=== PATIENT | female | born 1955 ===

== ENCOUNTER 2017-01-22 08:03 | Day surgery (SDC) | payer MEDICARE ==
[2015-08-31 09:18] VITALS: BMI 29.7
[2017-01-22 09:09] VITALS: O2SAT 100
[2017-01-22] MEDS ORDERED: Lactated Ringer's 500 ML IV ONE (09:42)
[2017-01-22 10:15] VITALS: TEMP 97
[2017-01-22 10:30] VITALS: BP 137/39; PULSE 55; RESP 18
== END 2017-01-22 13:59 | disposition home or self-care (01) ==
LOC: H.ENDO 08:03
PROVIDERS: ATTEND Internal Medicine Gastroenterology
DX: Z12.11 Encounter for screening for malignant neoplasm of colon (principal); E78.5 Hyperlipidemia, unspecified; I10 Essential (primary) hypertension; E03.9 Hypothyroidism, unspecified; K44.9 Diaphragmatic hernia without obstruction or gangrene; D12.3 Benign neoplasm of transverse colon; K64.8 Other hemorrhoids; K30 Functional dyspepsia; K29.70 Gastritis, unspecified, without bleeding; K29.50 Unspecified chronic gastritis without bleeding; B96.81 Helicobacter pylori [H. pylori] as the cause of diseases classified elsewhere
CPT/HCPCS: 43239; 45380; 88305; 88342; J7120

== ENCOUNTER 2017-02-24 13:20 | Emergency (ER) | payer MEDICARE ==
[2017-02-24 13:21] VITALS: BMI 29.7
[2017-02-24 13:38] VITALS: BP 142/72; PULSE 64; RESP 20; TEMP 98; O2SAT 100
--- NOTE | 2017-02-24 14:12 | ED PDOC ---
Upper Extremity Pain/Injury Time Seen by Provider: 02/24/17 13:34 Chief Complaint (Nursing): Upper Extremity Problem/Injury Chief Complaint (Provider): Left arm pain History Per: Patient History/Exam Limitations: no limitations Onset/Duration Of Symptoms: Days (3) Current Symptoms Are (Timing): Still Present Quality: "Pain" Severity: Moderate Exacerbating Factor(s): Movement Additional History Per: Patient Additional Complaint(s): The pt is a 61yo female with no pertinent PMHx, presents to the ED for evaluation of left sided neck pain radiating throughout her left arm. Pt. reports the pain is constant and worse with movement. She reports taking Aleve for pain with no relief - states last dose was taken last night. Pt denies any fall, trauma, chest pain, shortness of breath, palpitations. She offers no additional medical complaints. Past Medical History Reviewed: Historical Data, Nursing Documentation, Vital Signs Vital Signs: Last Vital Signs Temp 98.0 F 02/24/17 13:36 Pulse 64 02/24/17 13:36 Resp 20 02/24/17 13:36 BP 142/72 02/24/17 13:36 Pulse Ox 100 02/24/17 13:36 - Medical History PMH: Arthritis, Depression, Gastritis, HTN, Hypothyroidism Denies: Chronic Kidney Disease - Family History Family History: States: Unknown Family Hx - Home Medications Home Medications: Ambulatory Orders Medication Instructions Recorded Gabapentin [Neurontin] 300 mg PO QPM 09/02/15 Levothyroxine [Levoxyl] 150 mcg PO DAILY 09/02/15 Losartan Potassium 50 mg PO DAILY 09/02/15 Omeprazole [Prilosec] 20 mg PO DAILY 09/02/15 Rosuvastatin Calcium [Crestor] 10 mg PO DAILY 09/02/15 Cyclobenzaprine [Cyclobenzaprine 10 mg PO TID #20 tab 02/24/17 HCl] Ibuprofen [Motrin] 600 mg PO Q6 #20 tab 02/24/17 - Allergies Allergies/Adverse Reactions: Allergies Allergy/AdvReac Type Severity Reaction Status Date / Time No Known Allergies Allergy Verified 02/24/17 13:35 Review of Systems ROS Statement: Except As Marked, All Systems Reviewed And Found Negative Musculoskeletal: Positive for: Neck Pain (left sided), Arm Pain (left ) Physical Exam - Reviewed Nursing Documentation Reviewed: Yes Vital Signs Reviewed: Yes - Physical Exam Appears: Positive for: Well, Non-toxic, No Acute Distress Head Exam: Positive for: ATRAUMATIC, NORMAL INSPECTION, NORMOCEPHALIC Eye Exam: Positive for: Normal appearance Neck: Positive for: Normal (left cervical paraspinal tenderness), Supple Cardiovascular/Chest: Positive for: Regular Rate, Rhythm Respiratory: Positive for: Normal Breath Sounds. 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 See nursing notes. CBC, COMP resulted WNL Troponin (-) CXR: NAD, as read by GUILLERMO Cervical spine: NAD, as read by GUILLERMO Pt educated on all results and demonstrated full understanding. reports feeling improved on re-eval. Stable for discharge at this time Scribe Attestation: All records were documented by Janine Jackson, acting as a Scribe for ROBERT Lim. Provider Scribe Attestation: All medical record entries made by the Scribe were at my direction and personally dictated by me. I have reviewed the chart and agree that the record accurately reflects my personal performance of the history, physical exam, medical decision making, and the department course for this patient. I have also personally directed, reviewed, and agree with the discharge instructions and disposition. Disposition - Clinical Impression Clinical Impression: Shoulder pain - Patient ED Disposition Is Patient to be Admitted: No - Disposition Disposition: Routine/Home Disposition Time: 17:18 Condition: STABLE Prescriptions: Cyclobenzaprine [Cyclobenzaprine HCl] 10 mg PO TID #20 tab Ibuprofen [Motrin] 600 mg PO Q6 #20 tab Instructions: Shoulder Pain (ED) Print Language: MONGOLIAN
[2017-02-24 14:52] LABS: BASO % 0.6 % (0.0-2.0); EOS # 0.1 K/uL (0.0-0.7); HEMATOCRIT 38.8 % (34.0-47.0); LYMPH # 1.8 K/uL (1.0-4.3); LYMPH % 38.8 % (20.0-40.0); MEAN CELL VOLUME 76.3 fl (81.0-99.0); MEAN CORPUSCULAR HGB CONC 32.8 g/dL (33.0-37.0); MEAN PLATELET VOLUME 8.1 fl (7.2-11.7); MONO # 0.4 K/uL (0.0-0.8); MONO % 8.6 % (0.0-10.0); NEUT # 2.3 K/uL (1.8-7.0); NRBC % 0.2 % (0.0-0.0); RED CELL DISTRIBUTION WIDTH 15.2 % (11.5-14.5); WHITE BLOOD COUNT 4.6 K/uL (4.8-10.8)
--- NOTE | 2017-02-24 14:58 | RAD ---
PROCEDURE: Cervical Spine Radiographs. HISTORY: Cervical spine pain COMPARISON: 10/29/2016 FINDINGS: BONES: There is no interval change in overall alignment and appearance of the cervical vertebral bodies from the prior study. This would include moderate degenerative changes and anterior syndesmotic fights. Posterior elements are also unremarkable. No new jumped facets are seen. Neural foramen are unchanged. Hypertrophic degenerative facet change and uncovertebral changes are noted. Lung apices are within normal limits. C1-C2 articulation is unremarkable. No prevertebral soft tissue swelling is seen. Posterior elements are intact. DISC SPACES: No interval change. SOFT TISSUES: Normal. No prevertebral soft tissue swelling. OTHER FINDINGS: None. IMPRESSION: Stable cervical spondylosis without evidence of new malalignment or fracture.
--- NOTE | 2017-02-24 14:59 | RAD ---
HISTORY: left shoulder pain COMPARISON: 08/26/2015 TECHNIQUE: Chest PA and lateral FINDINGS: LUNGS: No active pulmonary disease. PLEURA: No significant pleural effusion identified. No pneumothorax apparent. CARDIOVASCULAR: Normal. OSSEOUS STRUCTURES: Stable degenerative changes are noted in the spine. VISUALIZED UPPER ABDOMEN: Normal. OTHER FINDINGS: None. IMPRESSION: No active disease. No interval change.
[2017-02-24 15:01] LABS: ALB/GLOB RATIO 1.2 (1.0-2.1); ALKALINE PHOSPHATASE 73 U/L (38-126); ALT/SGPT 32 U/L (9-52); AST/SGOT 23 U/L (14-36); BILIRUBIN,TOTAL 0.2 mg/dl (0.2-1.3); BLOOD UREA NITROGEN 13 mg/dl (7-17); CALCIUM 9.9 mg/dL (8.4-10.2); CARBON DIOXIDE 28 mmol/L (22-30); CHLORIDE 103 mmol/L (98-107); GFR AFRICAN-AMERICAN > 60; GLUCOSE,RANDOM 96 mg/dL (65-105); POTASSIUM 3.7 MMOL/L (3.6-5.0); SODIUM 143 mmol/l (132-148); TOTAL PROTEIN 8.1 G/DL (6.3-8.2)
[2017-02-24 15:17] LABS: PARTIAL THROMBOPLASTIN TIME 31.2 SECONDS (23.3-32.5)
--- NOTE | 2017-02-25 08:55 | CARD ---
APPROVED REPORT EKG Measurement Heart [id number] <Conclusion> Normal sinus rhythm T wave abnormality, consider anterior ischemia Abnormal ECG
== END 2017-02-24 16:32 | disposition home or self-care (01) ==
LOC: H.ER 13:20
DX: M25.512 Pain in left shoulder (principal); R94.31 Abnormal electrocardiogram [ECG] [EKG]
CPT/HCPCS: 71020; 72050; 80053; 84484; 85025; 85610; 85730; 93005; 96374; 99283; J2270

== ENCOUNTER 2017-09-27 10:47 | Emergency (ER) | payer MEDICARE ==
[2017-09-27 10:53] VITALS: BP 161/48; PULSE 60; TEMP 98; O2SAT 99
--- NOTE | 2017-09-27 11:25 | ED PDOC ---
HPI: Abdomen Chief Complaint (Provider): lower back/RUQ pain History Per: Patient History/Exam Limitations: no limitations Onset/Duration Of Symptoms: Days Current Symptoms Are (Timing): Still Present Quality Of Discomfort: "Pain" Exacerbating Factors: Supine, Movement <Cachorro Singh - Last Filed: 09/27/17 12:29> <Bunny Roldan - Last Filed: 09/27/17 12:39> Chief Complaint (Nursing): Abdominal Pain Additional Complaint(s): 61 y/o F with PMhx of Hypothyroidism presents to ED c/o back pain that radiates to the RUQ. Pain has been present for the past 2 months intermittent, worse with movements and patient cant sleep at night to the right side because of the pain. Not related to food, denies nausea, urinary symptoms, vomiting, diarrhea. Denies any falls in the past year. Patient has been taking tramadol pRN BID prescribed by PMD 1 month ago but last night pain didnt improved after taking 1 pill and she decided to come to ED. Denies LE paresthesias, radiation of the pain to LE or saddle anesthesia. (Cachorro Singh) Supervising Attending Note - Supervising Attending Note The Documented history was done by the: Physician Mr Teacher, Attending Physician The documented physical exam was done by the: Physician Mr Teacher, Attending Physician The documented procedures were done by the: Physician Mr Teacher, Attending Physician - Attestation: I have personally seen and examined this patient.: Yes I have fully participated in the care of the patient.: Yes I have reviewed all pertinent clinical information: Yes <Bunny Roldan - Last Filed: 09/27/17 12:39> Past Medical History - Medical History PMH: Arthritis, Depression, Gastritis, HTN, Hypothyroidism Denies: Chronic Kidney Disease - Family History Family History: States: Unknown Family Hx <Cachorro Singh - Last Filed: 09/27/17 12:29> <Bunny Roldan - Last Filed: 09/27/17 12:39> Vital Signs: Last Vital Signs Temp 98 F 09/27/17 10:52 Pulse 60 09/27/17 10:52 Resp BP 161/48 H 09/27/17 10:52 Pulse Ox 99 09/27/17 12:30 - Home Medications Home Medications: Ambulatory Orders Medication Instructions Recorded Gabapentin [Neurontin] 300 mg PO QPM 09/02/15 Levothyroxine [Levoxyl] 150 mcg PO DAILY 09/02/15 Losartan Potassium 50 mg PO DAILY 09/02/15 Omeprazole [Prilosec] 20 mg PO DAILY 09/02/15 Rosuvastatin Calcium [Crestor] 10 mg PO DAILY 09/02/15 Cyclobenzaprine [Cyclobenzaprine 10 mg PO TID #20 tab 02/24/17 HCl] Ibuprofen [Motrin] 600 mg PO Q6 #20 tab 02/24/17 Cyclobenzaprine [Cyclobenzaprine 10 mg PO TID #15 tab 09/27/17 HCl] Naproxen 500 mg PO BID #20 tab 09/27/17 - Allergies Allergies/Adverse Reactions: Allergies Allergy/AdvReac Type Severity Reaction Status Date / Time No Known Allergies Allergy Verified 02/24/17 13:35 Review of Systems ROS Statement: Except As Marked, All Systems Reviewed And Found Negative Gastrointestinal: Positive for: Abdominal Pain Musculoskeletal: Positive for: Back Pain <Cachorro Singh - Last Filed: 09/27/17 12:29> Physical Exam - Physical Exam Appears: Positive for: Non-toxic, Uncomfortable Skin: Positive for: Normal Color, Warm Eye Exam: Positive for: Normal appearance Neck: Positive for: Painless ROM Cardiovascular/Chest: Positive for: Regular Rate, Rhythm. Negative for: Gallop Respiratory: Positive for: Normal Breath Sounds. Negative for: Crackles, Rhonchi, Wheezing, Respiratory Distress Gastrointestinal/Abdominal: Positive for: Soft, Tenderness (RUQ mild). Negative for: Distended, Guarding, Rebound Back: Positive for: R CVA Tenderness, Muscle Spasm. Negative for: L CVA Tenderness, Vertebral Tenderness, Decreased ROM Extremity: Negative for: Tenderness, Pedal Edema, Swelling Neurologic/Psych: Positive for: Alert, Oriented. Negative for: Motor/Sensory Deficits <Cachorro Singh - Last Filed: 09/27/17 12:29> - Laboratory Results Result Diagrams: 09/27/17 11:57 09/27/17 11:57 - ECG O2 Sat by Pulse Oximetry: 99 <Cachorro Singh - Last Filed: 09/27/17 12:29> - Laboratory Results Result Diagrams: 09/27/17 11:57 09/27/17 11:57 <Bunny Roldan - Last Filed: 09/27/17 12:39> - Progress ED Course And Treament: Pain improved with TOradol and Flexeril CBC shows mild leukopenia rest unremarkable BMP unremarkable Urinedip normal Patient to F/U as outpatient (Cachorro Singh) Medical Decision Making <Cachorro Singh - Last Filed: 09/27/17 12:29> <Bunny Roldan - Last Filed: 09/27/17 12:39> Medical Decision Making: Back pain radiating to abd poss MSK F/U Urinedip to r/o kidney stones(Patient had CT abd and pelvis 3 months ago negative for stones) CBC/CMP to r/o GB disease Toradol IM once Flexeril PO once (Cachorro Singh) Disposition <Cachorro Singh - Last Filed: 09/27/17 12:29> - Disposition Disposition Time: 12:39 <Bunny Roldan - Last Filed: 09/27/17 12:39> - Clinical Impression Clinical Impression: Back pain - Disposition Referrals: [facility] [Outside] Condition: GOOD Additional Instructions: Follow up with your PCP in 3 days. Prescriptions: Cyclobenzaprine [Cyclobenzaprine HCl] 10 mg PO TID #15 tab Naproxen 500 mg PO BID #20 tab Instructions: Back Pain (ED)
[2017-09-27 12:06] LABS: BASO % 1.2 % (0.0-2.0); EOS # 0.1 K/uL (0.0-0.7); EOS % 2.1 % (0.0-4.0); HEMATOCRIT 37.2 % (34.0-47.0); LYMPH # 1.5 K/uL (1.0-4.3); LYMPH % 47.1 % (20.0-40.0); MEAN CELL VOLUME 77.9 fl (81.0-99.0); MEAN CORPUSCULAR HEMOGLOBIN 25.2 pg (27.0-31.0); MEAN CORPUSCULAR HGB CONC 32.4 g/dL (33.0-37.0); MEAN PLATELET VOLUME 8.2 fl (7.2-11.7); MONO # 0.4 K/uL (0.0-0.8); MONO % 11.4 % (0.0-10.0); NEUT # 1.3 K/uL (1.8-7.0); NEUT % 38.2 % (50.0-75.0); NRBC % 0.2 % (0.0-0.0); RED CELL DISTRIBUTION WIDTH 15.3 % (11.5-14.5); WHITE BLOOD COUNT 3.3 K/uL (4.8-10.8)
[2017-09-27 12:17] LABS: ALB/GLOB RATIO 1.4 (1.0-2.1); ALKALINE PHOSPHATASE 46 U/L (38-126); ALT/SGPT 32 U/L (9-52); AST/SGOT 20 U/L (14-36); BILIRUBIN,TOTAL 0.3 mg/dl (0.2-1.3); BLOOD UREA NITROGEN 16 mg/dl (7-17); CALCIUM 9.8 mg/dL (8.4-10.2); CARBON DIOXIDE 28 mmol/L (22-30); CHLORIDE 106 mmol/L (98-107); GFR AFRICAN-AMERICAN > 60; GLUCOSE,RANDOM 93 mg/dL (65-105); SODIUM 142 mmol/l (132-148); TOTAL PROTEIN 7.7 G/DL (6.3-8.2)
== END 2017-09-27 12:40 | disposition home or self-care (01) ==
LOC: H.ER 10:47
DX: M54.9 Dorsalgia, unspecified (principal); E03.9 Hypothyroidism, unspecified; F32.9 Major depressive disorder, single episode, unspecified; I10 Essential (primary) hypertension
CPT/HCPCS: 80053; 85025; 96372; 99282; J1885

== ENCOUNTER 2019-03-09 11:57 | Emergency (ER) | payer MEDICARE ==
[2019-03-09 12:41] VITALS: RESP 18
[2019-03-09 14:48] LABS: BASO % 1.1 % (0.0-2.0); EOS # 0.1 K/uL (0.0-0.7); EOS % 1.9 % (0.0-4.0); HEMOGLOBIN 11.6 g/dL (12.0-16.0); LYMPH # 1.3 K/uL (1.0-4.3); LYMPH % 33.3 % (20.0-40.0); MEAN CELL VOLUME 77.3 fl (81.0-99.0); MEAN CORPUSCULAR HEMOGLOBIN 25.3 pg (27.0-31.0); MEAN CORPUSCULAR HGB CONC 32.7 g/dL (33.0-37.0); MEAN PLATELET VOLUME 8.2 fl (7.2-11.7); MONO # 0.3 K/uL (0.0-0.8); MONO % 7.5 % (0.0-10.0); NEUT # 2.3 K/uL (1.8-7.0); NEUT % 56.2 % (50.0-75.0); RBC 4.6 Mil/uL (3.80-5.20); RED CELL DISTRIBUTION WIDTH 15.4 % (11.5-14.5)
[2019-03-09 14:56] LABS: PROTHROMBIN TIME 11.5 Seconds (9.8-13.1)
[2019-03-09 14:58] LABS: PARTIAL THROMBOPLASTIN TIME 38.2 Seconds (25.6-37.1)
[2019-03-09 14:59] LABS: ALB/GLOB RATIO 1.5 (1.0-2.1); ALBUMIN 4.4 g/dL (3.5-5.0); ALT/SGPT 28 U/L (9-52); AST/SGOT 27 U/L (14-36); BLOOD UREA NITROGEN 15 mg/dl (7-17); CALCIUM 9.3 mg/dL (8.4-10.2); GFR NON-AFRICAN AMERICAN > 60
--- NOTE | 2019-03-09 15:25 | ED PDOC ---
HPI: General Adult Time Seen by Provider: 03/09/19 12:52 Chief Complaint (Nursing): Back Pain Chief Complaint (Provider): Right clavicle pain History Per: Patient History/Exam Limitations: no limitations Onset/Duration Of Symptoms: Days Have you had recent travel within the past 21 days to any of the following countries: [place], [place], [place] or [place]?: No Current Symptoms Are (Timing): Still Present Additional History Per: Patient Additional Complaint(s): 63yo female, otherwise well with no past medical history, comes to ER reporting right clavicle pain x 4 days. She reports the pain is atraumatic and she denies any strenuous activity leading to the pain. She reports she just came here from [place]. She has been taking Advil with no relief of symptoms. No weakness, numbness, radiation of pain, or other complaints. Contrary to triage, patient denies chest pain. Past Medical History Reviewed: Historical Data, Nursing Documentation, Vital Signs Vital Signs: Last Vital Signs Temp 98.4 F 03/09/19 12:36 Pulse 68 03/09/19 12:36 Resp 18 03/09/19 12:36 BP 144/69 03/09/19 12:36 Pulse Ox 97 03/09/19 12:36 Primary Care Provider: FAMILY PROVIDER,NO - Medical History PMH: Arthritis, Depression, Gastritis, HTN, Hypothyroidism Denies: Chronic Kidney Disease - Surgical History Surgical History: No Surg Hx - Family History Family History: States: Unknown Family Hx - Social History Current smoker - smoking cessation education provided: No Alcohol: None Drugs: Denies - Home Medications Home Medications: Ambulatory Orders Medication Instructions Recorded Gabapentin [Neurontin] 300 mg PO QPM 09/02/15 Levothyroxine [Levoxyl] 150 mcg PO DAILY 09/02/15 Losartan Potassium 50 mg PO DAILY 09/02/15 Omeprazole [Prilosec] 20 mg PO DAILY 09/02/15 Rosuvastatin Calcium [Crestor] 10 mg PO DAILY 09/02/15 Cyclobenzaprine [Cyclobenzaprine 10 mg PO TID #20 tab 02/24/17 HCl] Ibuprofen [Motrin] 600 mg PO Q6 #20 tab 02/24/17 Cyclobenzaprine [Cyclobenzaprine 10 mg PO TID #15 tab 09/27/17 HCl] Naproxen 500 mg PO BID #20 tab 09/27/17 Naproxen [Naprosyn] 500 mg PO BID PRN #15 tablet 03/09/19 - Allergies Allergies/Adverse Reactions: Allergies Allergy/AdvReac Type Severity Reaction Status Date / Time No Known Allergies Allergy Verified 02/24/17 13:35 Review of Systems ROS Statement: Except As Marked, All Systems Reviewed And Found Negative Constitutional: Negative for: Fever, Chills Cardiovascular: Negative for: Chest Pain Musculoskeletal: Positive for: Other (right clavicle). Negative for: Neck Pain, Shoulder Pain Physical Exam - Reviewed Nursing Documentation Reviewed: Yes Vital Signs Reviewed: Yes - Physical Exam Appears: Positive for: Non-toxic, No Acute Distress Head Exam: Positive for: ATRAUMATIC, NORMAL INSPECTION, NORMOCEPHALIC Skin: Positive for: Normal Color, Warm, DRY Eye Exam: Positive for: EOMI, Normal appearance, PERRL ENT: Positive for: Normal ENT Inspection Neck: Positive for: Normal, Painless ROM Cardiovascular/Chest: Positive for: Regular Rate, Rhythm. Negative for: Tachycardia Respiratory: Positive for: CNT, Normal Breath Sounds Gastrointestinal/Abdominal: Positive for: Normal Exam, Soft. Negative for: Tenderness Back: Positive for: Normal Inspection Extremity: Positive for: Normal ROM, Other (tenderness and edema to mid right clavicle.) Neurological/Psych: Positive for: Awake, Alert, Normal Tone - Laboratory Results Result Diagrams: 03/09/19 14:33 03/09/19 14:33 Lab Results: PT 11.5 Seconds (9.8-13.1) 03/09/19 14:33 INR 1.0 03/09/19 14:33 APTT 38.2 Seconds (25.6-37.1) H 03/09/19 14:33 Troponin I < 0.0120 ng/mL (0.00-0.120) 03/09/19 14:33 Total Bilirubin 0.3 mg/dl (0.2-1.3) 03/09/19 14:33 AST 27 U/L (14-36) 03/09/19 14:33 ALT 28 U/L (9-52) 03/09/19 14:33 Alkaline Phosphatase 61 U/L (38-126) 03/09/19 14:33 Total Protein 7.4 G/DL (6.3-8.2) 03/09/19 14:33 Albumin 4.4 g/dL (3.5-5.0) 03/09/19 14:33 Globulin 3.0 gm/dL (2.2-3.9) 03/09/19 14:33 Albumin/Globulin Ratio 1.5 (1.0-2.1) 03/09/19 14:33 - ECG O2 Sat by Pulse Oximetry: 97 (RA) Pulse Ox Interpretation: Normal Medical Decision Making Medical Decision Making: Impression: Clavicle pain Plan: -- Labs -- Neck and Chest CT w/o contrast 1650 Labs reviewed, shows no clinically significant abnormalities. 1736 CT Neck and Chest FINDINGS: CT of the neck: The assessment is sub 1 limited without IV contrast administration. No definite evidence of mass lesion in the neck. No evidence of significant lymphadenopathy. The visualized portion of the brain is grossly unremarkable. Atherosclerotic calcification noted in the carotid arteries. LUNGS: No evidence of infiltrate or consolidation in the lungs. MEDIASTINUM: Unremarkable thoracic aorta. No aneurysm. Normal sized heart. Main pulmonary artery unremarkable. No vascular congestion. No lymphadenopathy. Small nodular opacities noted in the anterior mediastinum of uncertain etiology. No aortic atherosclerotic calcification. PLEURA: No pleural fluid. No pneumothorax. BONES: No fracture. No destructive lesion. Degenerative changes noted at the right shoulder. UPPER ABDOMEN: There is a moderate size hiatus hernia noted. There is a [id number] diffuse esophageal wall thickening noted. OTHER FINDINGS: None. IMPRESSION: No evidence of infiltrate or consolidation in the lungs. Small nodular opacities noted in the anterior mediastinum of uncertain etiology. No evidence of mass lesion. Moderate size hiatus hernia. [id number] diffuse esophageal wall thickening. Scribe Attestation: Documented by Janine Jackson acting as a scribe for Jen Richardson MD. Provider Scribe Attestation: All medical record entries made by the Scribe were at my direction and personally dictated by me. I have reviewed the chart and agree that the record accurately reflects my personal performance of the history, physical exam, medical decision making, and the department course for this patient. I have also personally directed, reviewed, and agree with the discharge instructions and disposition. Disposition - Clinical Impression Clinical Impression: Clavicle pain - Disposition Referrals: [facility] [Outside] Disposition Time: 17:20 Condition: STABLE Prescriptions: Naproxen [Naprosyn] 500 mg PO BID PRN #15 tablet PRN Reason: Pain, Moderate (4-7) Instructions: Muscle and Bone Pain (DC) Forms: [facility] ([place]) Print Language: SLOVENIAN
--- NOTE | 2019-03-09 17:34 | CT ---
Date of service: 03/09/2019 PROCEDURE: CT Chest and neck without contrast HISTORY: Pain R clavicle/chest COMPARISON: Comparison is made to the previous study dated 06/04/2018 TECHNIQUE: Contiguous axial images were obtained through the neck and chest without intravenous contrast enhancement. Sagittal and coronal reconstructions were performed. Radiation dose: Total exam DLP = 796.34 mGy-cm. This CT exam was performed using one or more of the following dose reduction techniques: Automated exposure control, adjustment of the mA and/or kV according to patient size, and/or use of iterative reconstruction technique. FINDINGS: CT of the neck: The assessment is sub 1 limited without IV contrast administration. No definite evidence of mass lesion in the neck. No evidence of significant lymphadenopathy. The visualized portion of the brain is grossly unremarkable. Atherosclerotic calcification noted in the carotid arteries. LUNGS: No evidence of infiltrate or consolidation in the lungs. MEDIASTINUM: Unremarkable thoracic aorta. No aneurysm. Normal sized heart. Main pulmonary artery unremarkable. No vascular congestion. No lymphadenopathy. Small nodular opacities noted in the anterior mediastinum of uncertain etiology. No aortic atherosclerotic calcification. PLEURA: No pleural fluid. No pneumothorax. BONES: No fracture. No destructive lesion. Degenerative changes noted at the right shoulder. UPPER ABDOMEN: There is a moderate size hiatus hernia noted. There is a [id number] diffuse esophageal wall thickening noted. OTHER FINDINGS: None. IMPRESSION: No evidence of infiltrate or consolidation in the lungs. Small nodular opacities noted in the anterior mediastinum of uncertain etiology. No evidence of mass lesion. Moderate size hiatus hernia. [id number] diffuse esophageal wall thickening.
[2019-03-09 18:49] VITALS: BP 132/68; PULSE 59; TEMP 98.3; O2SAT 100
== END 2019-03-09 18:46 | disposition home or self-care (01) ==
LOC: H.ER 11:57
DX: M25.511 Pain in right shoulder (principal); E03.9 Hypothyroidism, unspecified; Z86.59 Personal history of other mental and behavioral disorders; I10 Essential (primary) hypertension